=== PATIENT | male | born 2000 | race African-American/Black ===

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

== ENCOUNTER 2019-05-03 22:49 | Emergency (ER) | payer OTHER ==
[~2019-05-03] VITALS: Ht 193 cm; Wt 72.6 kg
[2019-05-03 22:54] VITALS: BP 105/68
--- NOTE | 2019-05-03 22:54 | NUR ---
TO BED # 04 AMBULATORY
--- NOTE | 2019-05-03 23:01 | NUR ---
KIRSTY BEDSIDE EVALUATING PT
[2019-05-03 23:30] VITALS: BP 105/68
--- NOTE | 2019-05-03 23:30 | NUR ---
Patient discharged with v/s stable. Written and verbal after care instructions given and explained. Patient alert, oriented and verbalized understanding of instructions. Ambulatory with steady gait. All questions addressed prior to discharge. ID band removed. Patient advised to follow up with PMD. Rx of MOTRIN, AND PREDNISONE given. Patient educated on indication of medication including possible reaction and side effects. Opportunity to ask questions provided and answered.
== END 2019-05-03 23:30 | disposition home or self-care (01) ==
LOC: MED 22:49
DX: J45.909 Unspecified asthma, uncomplicated (principal); M79.18 Myalgia, other site
CPT/HCPCS: 81002; 81025; 99283

== ENCOUNTER 2022-03-14 20:16 | Emergency (ER) | payer MEDICAID, OTHER ==
[~2022-03-14] VITALS: Ht 193 cm; Wt 95.3 kg
[2022-03-14 20:51] VITALS: BP 118/62
--- NOTE | 2022-03-14 21:04 | NUR ---
TO LOBBY FOLLOWING TRIAGE Addendum: 03/14/22 at 2104 by RENATA UNABLE TO PROVIDE URINE AT THIS TIME
[2022-03-14] MEDS ORDERED: KETOROLAC 30 MG/ML VIAL IVP ONE (21:05)
[2022-03-14] MEDS ORDERED: NACL 0.9% 1,000 ML IV ONE (21:05)
[2022-03-14 21:38] LABS: BASOPHILS # (AUTO) 0.1 K/uL (0.00-0.22); BASOPHILS % (AUTO) 0.6 % (0.0-2.0); EOSINOPHILS # (AUTO) 0.1 K/uL (0-0.4); EOSINOPHILS % (AUTO) 1.1 % (0.0-4.0); HEMATOCRIT 40.3 % (36-52); HEMOGLOBIN 13.7 g/dL (12.0-18.0); LYMPHOCYTES # (AUTO) 2.7 K/uL (2.0-11.5); LYMPHOCYTES % (AUTO) 34.6 % (20.5-51.1); MEAN CORPUSCULAR HEMOGLOBIN 30 pg (27-31); MEAN CORPUSCULAR HGB CONC 34 g/dL (33-37); MEAN CORPUSCULAR VOLUME 87.9 fL (80-94); MONOCYTES # (AUTO) 0.6 K/uL (0.8-1.0); MONOCYTES % (AUTO) 8.2 % (1.7-9.3); NEUTROPHILS # (AUTO) 4.3 K/uL (1.8-7.7); NEUTROPHILS % (AUTO) 55.5 % (42.2-75.2); PLATELET COUNT (AUTO) 188 K/uL (140-450); RED BLOOD CELL COUNT(AUTO) 4.58 MIL/uL (4.20-6.10); RED CELL DISTRIBUTION WIDTH 14.8 % (11.6-13.7); WHITE BLOOD COUNT (AUTO) 7.8 K/uL (4.8-10.8)
--- NOTE | 2022-03-14 22:06 | NUR ---
PT AMBUALTED TO BED #3
[2022-03-14 22:17] LABS: ALBUMIN 4.2 g/dL (3.4-5.0); ANION GAP 10.7 (8-16); CARBON DIOXIDE 29.2 mmol/L (21-32); CREATININE 1.1 mg/dL (0.6-1.3); POTASSIUM 3.9 mmol/L (3.5-5.1); TOTAL BILIRUBIN 1.5 mg/dL (0.0-1.0)
[2022-03-14] MEDS ORDERED: KETOROLAC 30 MG/ML VIAL ONE (22:40)
--- NOTE | 2022-03-14 23:52 | NUR ---
2215: PT CAME IN FOR EVALUATION OF FLANK PAIN. A/OX4 STABLE VITAL SIGNS. 2330: COMPLETED NS BOLUS. PT'S STILL NOT URINATING. 2350: EXPLAINED IF NOT ABLE TO URINATE, NEEDS TO USE STRAIGHT CATHETER. PT SAID HE WILL TRY AGAIN.
[2022-03-15 00:16] LABS: APPEARANCE,URINE CLEAR (CLEAR); BILIRUBIN,URINE NEGATIVE (NEGATIVE); BLOOD, URINE NEGATIVE (NEGATIVE); COLOR,URINE YELLOW (YELLOW); LEUKOCYTE ESTERASE ,URINE NEGATIVE (NEGATIVE); NITRITE, URINE NEGATIVE (NEGATIVE); UGLUCOSE NEGATIVE (NEGATIVE)
[2022-03-15 00:33] LABS: BARBITURATE, URINE NEGATIVE ng/ml (NEG <=200); BENZODIAZEPINE, URINE NEGATIVE ng/mL (NEG <=200); CANNABINOID, URINE POSITIVE ng/mL (NEG <=50); COCAINE, URINE NEGATIVE ng/mL (NEG <=300); OPIATE, URINE NEGATIVE ng/mL (NEG <=2000); PHENCYCLIDINE SCREEN,URINE NEGATIVE ng/mL (NEG <=25)
[2022-03-15 00:36] LABS: RBC,URINE 0-5 /HPF (0-5); WBC,URINE 0-5 /HPF (0-5)
[2022-03-15] MEDS ORDERED: NAPR-1717 PO (00:49)
[2022-03-15 01:06] VITALS: BP 127/79
== END 2022-03-15 01:09 | disposition home or self-care (01) ==
LOC: MED 20:16
DX: R50.9 Fever, unspecified (principal); R10.9 Unspecified abdominal pain; E86.0 Dehydration; J45.909 Unspecified asthma, uncomplicated; Z79.899 Other long term (current) drug therapy
CPT/HCPCS: 36415; 74176; 80053; 80305; 81001; 83605; 85025; 87040; 87086; 96361; 96374; 99285; J1885

== ENCOUNTER 2023-05-02 16:00 | Emergency (ER) | payer BC, MEDICAID ==
[~2023-05-02 16:00] MED LIST: NAPR-1717 PO
[2023-05-03] MEDS ORDERED: DOCU-299 PO (13:22)
== END 2023-05-02 16:20 | disposition left against medical advice (07) ==
LOC: MED 16:00
DX: Z53.21 Procedure and treatment not carried out due to patient leaving prior to being seen by health care provider (principal)

== ENCOUNTER 2023-05-03 10:05 | Emergency (ER) | payer BC, MEDICAID ==
[~2023-05-03] VITALS: Ht 180.3 cm; Wt 72.6 kg
[2023-05-03 11:12] VITALS: BP 113/77; PULSE 89; RESP 18; TEMP 98.9; O2SAT 98
[2023-05-03 11:56] LABS: BASOPHILS # (AUTO) 0.1 K/uL (0.00-0.22); BASOPHILS % (AUTO) 0.6 % (0.0-2.0); EOSINOPHILS # (AUTO) 0.1 K/uL (0-0.4); EOSINOPHILS % (AUTO) 1.4 % (0.0-4.0); HEMATOCRIT 41.3 % (36-52); HEMOGLOBIN 13.7 g/dL (12.0-18.0); LYMPHOCYTES # (AUTO) 2.1 K/uL (2.0-11.5); LYMPHOCYTES % (AUTO) 23.2 % (20.5-51.1); MEAN CORPUSCULAR HEMOGLOBIN 30 pg (27-31); MEAN CORPUSCULAR HGB CONC 33 g/dL (33-37); MEAN CORPUSCULAR VOLUME 89.3 fL (80-94); MONOCYTES # (AUTO) 0.5 K/uL (0.8-1.0); MONOCYTES % (AUTO) 5.9 % (1.7-9.3); NEUTROPHILS # (AUTO) 6.4 K/uL (1.8-7.7); NEUTROPHILS % (AUTO) 68.9 % (42.2-75.2); PLATELET COUNT (AUTO) 226 K/uL (140-450); RED BLOOD CELL COUNT(AUTO) 4.63 MIL/uL (4.20-6.10); RED CELL DISTRIBUTION WIDTH 15.2 % (11.6-13.7); WHITE BLOOD COUNT (AUTO) 9.3 K/uL (4.8-10.8)
[2023-05-03 12:14] LABS: INR 0.99 (0.8-1.2); PARTIAL THROMBOPLASTIN TIME 27.5 secs (22-35.6); PROTHROMBIN TIME 10.4 secs (10.8-13.4)
[2023-05-03 12:58] LABS: ANION GAP 13.1 (8-16); CARBON DIOXIDE 28.8 mmol/L (21-32); POTASSIUM 3.9 mmol/L (3.5-5.1)
[2023-05-03 13:02] LABS: ALBUMIN 4.2 g/dL (3.4-5.0); TOTAL BILIRUBIN 0.7 mg/dL (0.0-1.0); TOTAL PROTEIN, SERUM 7.5 g/dL (6.4-8.2)
[2023-05-03] MEDS ORDERED: DOCU-299 PO (13:22)
== END 2023-05-03 13:27 | disposition home or self-care (01) ==
LOC: MED 10:05
DX: K62.5 Hemorrhage of anus and rectum (principal); R10.30 Lower abdominal pain, unspecified; R63.0 Anorexia; J45.909 Unspecified asthma, uncomplicated; F17.210 Nicotine dependence, cigarettes, uncomplicated; Z98.890 Other specified postprocedural states; Z79.1 Long term (current) use of non-steroidal anti-inflammatories (NSAID)
CPT/HCPCS: 36415; 80053; 85025; 85610; 85730; 86886; 86900; 86901; 99284